=== PATIENT | female | born 1980 | race African-American/Black ===

== ENCOUNTER 2024-04-16 15:09 | Emergency (ER) | payer MEDICAID ==
[~2024-04-16] VITALS: Ht 167.6 cm; Wt 73.0 kg
[2024-04-16 15:12] VITALS: BP 125/78; PULSE 95; RESP 16; TEMP 98.5; O2SAT 100
[2024-04-16] MEDS ORDERED: ACETAMINOPHEN 325MG TABLET PO ONE (21:00)
== END 2024-04-16 21:01 | disposition home or self-care (01) ==
LOC: ER 15:09
DX: S80.12XA Contusion of left lower leg, initial encounter (principal); X58.XXXA Exposure to other specified factors, initial encounter; Y93.89 Activity, other specified; Y92.89 Other specified places as the place of occurrence of the external cause; Y99.8 Other external cause status
CPT/HCPCS: 73590; 93971; 99284

== ENCOUNTER 2024-11-19 16:20 | Emergency (ER) | payer MEDICAID ==
[~2024-11-19] VITALS: Ht 167.6 cm; Wt 65.0 kg
[2024-11-19 17:15] LABS: CLARITY URINE CLEAR (CLEAR); COLOR URINE YELLOW (YELLOW); GLUCOSE URINE NEGATIVE (NEGATIVE); KETONES URINE TRACE (NEGATIVE); LEUKOCYTE ESTERASE URINE NEGATIVE (NEGATIVE); NITRITE URINE NEGATIVE (NEGATIVE); OCCULT BLOOD URINE 3+ (NEGATIVE); PH URINE 5.5 (4.5-8.0); PROTEIN URINE TRACE (NEGATIVE); SPECIFIC GRAVITY URINE 1.020 (1.005-1.030); UROBILINOGEN URINE 0.2 E.U./dL (0.2-1.0)
[2024-11-19 17:31] LABS: *AMPHETAMINES SCREEN URINE PRESUMPTIVE POSITIVE (NEGATIVE); *BARBITURATES SCREEN URINE NEGATIVE (NEGATIVE); *BENZODIAZEPINES SCREEN URINE NEGATIVE (NEGATIVE); *COCAINE SCREEN URINE NEGATIVE (NEGATIVE); CANNABINOID URINE SCREEN PRESUMPTIVE POSITIVE (NEGATIVE); ECSTASY MDMA SCREEN URINE CONF.TEST INDICATED (NEGATIVE); METHADONE URINE SCREEN NEGATIVE (NEGATIVE); OPIATES URINE SCREEN NEGATIVE (NEGATIVE); PHENCYCLIDINE URINE SCREEN NEGATIVE (NEGATIVE)
[2024-11-19 17:43] LABS: BACTERIA URINE TRACE; MUCUS URINE 1+ /lpf (< = 2+); RBC URINE 25-50 /hpf (0-2); SQUAMOUS EPITHELIAL CELL URINE 1+ /lpf (RARE/1+); WBC URINE NONE SEEN /hpf (0-2)
[2024-11-19 18:02] LABS: HEMATOCRIT. 29.7 % (36.0-48.0); HEMOGLOBIN. 9.3 g/dL (12.0-16.0); MEAN PLATELET VOLUME 6.7 fl (7.4-10.4); PLATELET 429 x1000/uL (130-400); RED BLOOD CELL COUNT 3.97 mill/uL (4.2-5.4); RED CELL DISTRIBUTION WIDTH 24.4 % (11.6-14.6)
[2024-11-19 18:07] LABS: CREATININE 0.8 mg/dL (0.6-1.0); INR 1.0
[2024-11-19 18:08] LABS: ETHANOL BLOOD < 10 mg/dL (<10); UREA NITROGEN BLOOD 8 mg/dL (9-23)
[2024-11-19 18:09] LABS: ASPARTATE AMINOTRANSFERASE 20 IU/L (<34)
[2024-11-19 18:10] LABS: BILIRUBIN DIRECT 0.2 mg/dL (<=3.0); BILIRUBIN TOTAL 0.8 mg/dL (0.1-1.0); PROTEIN TOTAL 7.5 g/dL (6.0-8.3)
[2024-11-19 18:26] LABS: LYMPHOCYTES % MANUAL 16.0 % (20.0-60.0); MONOCYTES % MANUAL 7.0 % (2.0-8.0); NEUTROPHILS % MANUAL 77.0 % (45.0-75.0); PLATELET ESTIMATE INCREASED
[2024-11-19 18:31] LABS: HCG SCREEN NEGATIVE
[2024-11-19] MEDS: HALOPERIDOL LACTATE 5MG/ML VIAL IM ONE (20:16)
[2024-11-19] MEDS: DIPHENHYDRAMINE 50MG/ML VIAL IM ONE (20:16)
[2024-11-19] MEDS: LORAZEPAM 2MG/ML UD SYRINGE ONE (20:17)
[2024-11-19] MEDS: ZIPRASIDONE MESYLATE 20MG/VIAL IM ONE (21:05)
[2024-11-19 21:15] VITALS: O2SAT 98
[2024-11-20] MEDS: OLANZAPINE 5MG TABLET PO SCH (12:47)
[2024-11-20 13:55] VITALS: BP 102/65; PULSE 97; RESP 18; TEMP 36.7; O2SAT 100
== END 2024-11-20 14:20 | disposition short-term general hospital (02) ==
LOC: ER 16:20
DX: R45.851 Suicidal ideations (principal); N93.9 Abnormal uterine and vaginal bleeding, unspecified; D64.89 Other specified anemias; D57.1 Sickle-cell disease without crisis; D75.839 Thrombocytosis, unspecified; F25.1 Schizoaffective disorder, depressive type; F31.9 Bipolar disorder, unspecified; Z79.899 Other long term (current) drug therapy; Z20.822 Contact with and (suspected) exposure to COVID-19
CPT/HCPCS: 80076; 80305; 80048; 81003; 80307; 80329; 80320; 84703; 85025; 85610; 36415; 76856; 96372; 99285; 87426; J1200; J1630; J2060; J3486; Z7610; G0480

== ENCOUNTER 2025-04-09 06:10 | Emergency (ER) | payer MEDICAID ==
[~2025-04-09] VITALS: Ht 167.6 cm; Wt 54.0 kg
[2025-04-09] MEDS: FAMOTIDINE 20MG TABLET PO ONE (07:57)
[2025-04-09 07:58] LABS: BASOPHILS % 0.7 % (0.0-2.0); EOSINOPHILS % 0.1 % (0.0-5.0); HEMATOCRIT. 27.1 % (36.0-48.0); HEMOGLOBIN. 8.6 g/dL (12.0-16.0); LYMPHOCYTES % 7.3 % (20.0-50.0); MEAN PLATELET VOLUME 6.2 fl (7.4-10.4); MONOCYTES % 4.0 % (2.0-8.0); NEUTROPHILS % 87.9 % (40.0-76.0); PLATELET 458 x1000/uL (130-400); RED BLOOD CELL COUNT 3.57 mill/uL (4.2-5.4); RED CELL DISTRIBUTION WIDTH 21.8 % (11.6-14.6)
[2025-04-09 08:05] LABS: CREATININE 0.8 mg/dL (0.6-1.0); TROPONIN I HIGH SENSITIVITY < 4 ng/L (3.0-34); UREA NITROGEN BLOOD 11 mg/dL (9-23)
[2025-04-09 08:07] LABS: ASPARTATE AMINOTRANSFERASE 14 IU/L (<34); BILIRUBIN DIRECT < 0.1 mg/dL (<=3.0); BILIRUBIN TOTAL 0.3 mg/dL (0.1-1.0); PROTEIN TOTAL 7.2 g/dL (6.0-8.3)
[2025-04-09 09:00] LABS: HCG SCREEN NEGATIVE
[2025-04-09 10:02] LABS: CLARITY URINE TURBID (CLEAR); COLOR URINE YELLOW (YELLOW); GLUCOSE URINE NEGATIVE (NEGATIVE); KETONES URINE NEGATIVE (NEGATIVE); LEUKOCYTE ESTERASE URINE TRACE (NEGATIVE); NITRITE URINE NEGATIVE (NEGATIVE); OCCULT BLOOD URINE 3+ (NEGATIVE); PH URINE 5.5 (4.5-8.0); PROTEIN URINE 1+ (NEGATIVE); SPECIFIC GRAVITY URINE 1.027 (1.005-1.030); UROBILINOGEN URINE 1.0 E.U./dL (0.2-1.0)
[2025-04-09] MEDS: HALOPERIDOL LACTATE 5MG/ML VIAL IM ONE (10:26)
[2025-04-09 10:27] VITALS: O2SAT 98
[2025-04-09] MEDS: MIDAZOLAM HCL 2 MG/2 ML VIAL IM ONE (10:27)
[2025-04-09 10:38] LABS: RBC URINE 0-2 /hpf (0-2); SQUAMOUS EPITHELIAL CELL URINE NONE SEEN /lpf (RARE/1+); WBC URINE 0-2 /hpf (0-2)
[2025-04-09 10:39] LABS: AMORPHOUS SEDIMENT URINE 2+ /lpf; BACTERIA URINE 1+; COARSE GRANULAR CASTS URINE 0-5 /lpf; FINE GRANULAR CASTS URINE 0-5 /lpf; HYALINE CASTS URINE 0-5 /lpf
[2025-04-09 10:42] LABS: *AMPHETAMINES SCREEN URINE PRESUMPTIVE POSITIVE (NEGATIVE); *BARBITURATES SCREEN URINE NEGATIVE (NEGATIVE); *BENZODIAZEPINES SCREEN URINE NEGATIVE (NEGATIVE); *COCAINE SCREEN URINE NEGATIVE (NEGATIVE); CANNABINOID URINE SCREEN PRESUMPTIVE POSITIVE (NEGATIVE); ECSTASY MDMA SCREEN URINE CONF.TEST INDICATED (NEGATIVE); METHADONE URINE SCREEN NEGATIVE (NEGATIVE); OPIATES URINE SCREEN NEGATIVE (NEGATIVE); PHENCYCLIDINE URINE SCREEN NEGATIVE (NEGATIVE)
[2025-04-09 10:44] LABS: TROPONIN I HIGH SENSITIVITY < 4 ng/L (3.0-34)
[2025-04-09] MEDS ORDERED: HYDROXYZINE 25MG TABLET PO PRN (13:15)
[2025-04-09 16:57] VITALS: BP 102/70; PULSE 95; RESP 18; TEMP 36.9; O2SAT 100
[2025-04-09] MEDS ORDERED: OLANZAPINE 5MG TABLET PO SCH (21:00)
== END 2025-04-09 17:15 ==
LOC: ER 06:10
DX: K80.20 Calculus of gallbladder without cholecystitis without obstruction (principal); F31.9 Bipolar disorder, unspecified; F20.9 Schizophrenia, unspecified; R45.851 Suicidal ideations; Z79.899 Other long term (current) drug therapy; Z20.822 Contact with and (suspected) exposure to COVID-19
CPT/HCPCS: 80076; 80305; 80048; 81003; 80307; 80329; 80320; 84703; 83690; 85025; 84484; 36415; 74176; 93005; 96372; 99291; 87426; J1630; J2250; Z7610 ×3; G0480

== ENCOUNTER 2025-04-18 06:39 | Emergency (ER) | payer MEDICAID ==
[~2025-04-18] VITALS: Ht 162.6 cm; Wt 55.0 kg
[2025-04-18 06:45] VITALS: O2SAT 99
[2025-04-18 07:35] LABS: HEMATOCRIT. 28.0 % (36.0-48.0); HEMOGLOBIN. 8.8 g/dL (12.0-16.0); MEAN PLATELET VOLUME 6.5 fl (7.4-10.4); PLATELET 405 x1000/uL (130-400); RED BLOOD CELL COUNT 3.79 mill/uL (4.2-5.4); RED CELL DISTRIBUTION WIDTH 21.5 % (11.6-14.6)
[2025-04-18] MEDS: LORAZEPAM 2MG/ML UD SYRINGE IV SCH (07:45)
[2025-04-18] MEDS: SODIUM CHLORIDE 0.9% 1,000 ML IV ONE (07:50)
[2025-04-18 07:58] LABS: CREATININE 0.8 mg/dL (0.6-1.0); UREA NITROGEN BLOOD 12 mg/dL (9-23)
[2025-04-18 07:59] LABS: PROTEIN TOTAL 7.6 g/dL (6.0-8.3)
[2025-04-18 08:00] LABS: ASPARTATE AMINOTRANSFERASE 35 IU/L (<34); BILIRUBIN DIRECT 0.2 mg/dL (<=3.0); BILIRUBIN TOTAL 0.6 mg/dL (0.1-1.0)
[2025-04-18 08:12] LABS: HCG SCREEN NEGATIVE
[2025-04-18 09:30] VITALS: BP 138/72; PULSE 101; RESP 18; TEMP 36.8; O2SAT 100
[2025-04-18 11:55] LABS: BASOPHILS % MANUAL 1.0 % (0.0-2.0); EOSINOPHILS % MANUAL 1.0 % (0.0-5.0); LYMPHOCYTES % MANUAL 10.0 % (20.0-60.0); MONOCYTES % MANUAL 4.0 % (2.0-8.0); NEUTROPHILS % MANUAL 84.0 % (45.0-75.0)
[2025-04-18 11:57] LABS: PLATELET ESTIMATE SLIGHTLY INCREASED
== END 2025-04-18 11:11 | disposition home or self-care (01) ==
LOC: ER 06:39
DX: F41.9 Anxiety disorder, unspecified (principal); F15.10 Other stimulant abuse, uncomplicated; F17.200 Nicotine dependence, unspecified, uncomplicated; F20.9 Schizophrenia, unspecified; F31.9 Bipolar disorder, unspecified; D57.1 Sickle-cell disease without crisis
CPT/HCPCS: 99284; 96360; 80076; 80048; 82550; 84703; 83735; 85025; 36415; 93005; J7030; J2060